=== PATIENT | male | born 1955 | race Caucasian/White ===

== ENCOUNTER 2018-12-04 09:00 | Day surgery (SDC) | payer OTHER ==
[~2018-12-04] VITALS: Ht 167.6 cm; Wt 84.8 kg
[2018-12-04] MEDS ORDERED: NITROGLYCERIN 50MCG/ML 10ML VIAL (CATH LAB) IV ONE (09:41)
[2018-12-04] MEDS ORDERED: NICARDIPINE 100MCG/ML 10ML VIAL (CATH LAB) IV ONE (09:41)
[2018-12-04] MEDS ORDERED: PHENYLEPHRINE 100MCG/ML 10ML VIAL (CATH LAB) IV ONE (09:41)
[2018-12-04] MEDS ORDERED: HEPARIN SODIUM 1,000 UNIT/1ML VIAL IV ONE (09:41)
[2018-12-04] MEDS ORDERED: FENTANYL CITRATE/PF 50MCG/ML 2ML VIAL ONE (10:14)
[2018-12-04] MEDS ORDERED: MIDAZOLAM HCL 2 MG/2 ML VIAL ONE (10:14)
[2018-12-04] MEDS ORDERED: LIDOCAINE HCL 1% 20ML VIAL (Pyxis) INJ ONE (10:15)
[2018-12-04] MEDS ORDERED: IODIXANOL 320MG/ML 100 ML BOTTLE IV ONE (10:15)
[2018-12-04] MEDS ORDERED: OMEP20CA5 MT (10:43)
[2018-12-04] MEDS ORDERED: TAMS-11 MT (10:43)
[2018-12-04] MEDS ORDERED: GABA-290 PO (10:43)
[2018-12-04] MEDS ORDERED: ASPI-1158 MT (10:43)
[2018-12-04] MEDS ORDERED: INSU100V34 SQ (10:43)
[2018-12-04] MEDS ORDERED: ATOR-2 MT (10:43)
[2018-12-04] MEDS ORDERED: METF-416 MT (10:43)
[2018-12-04] MEDS ORDERED: LISI10TA5 MT (10:43)
[2018-12-04] MEDS ORDERED: HYDR25TA MT (10:43)
[2018-12-04] MEDS ORDERED: RAMI5CAP65 MT (10:43)
[2018-12-04] MEDS ORDERED: GLIP10TA10 MT (10:43)
[2018-12-04] MEDS ORDERED: HYDROCODONE/ACETAMINOPHEN 5/325MG TABLET PO NR (15:45)
[2018-12-04 15:47] VITALS: BP 120/80
== END 2018-12-04 16:30 | disposition home or self-care (01) ==
LOC: CCL 09:00
PROVIDERS: ATTEND Specialist
DX: I25.10 Atherosclerotic heart disease of native coronary artery without angina pectoris (principal); I35.0 Nonrheumatic aortic (valve) stenosis; I10 Essential (primary) hypertension; E78.5 Hyperlipidemia, unspecified; E11.9 Type 2 diabetes mellitus without complications; K21.9 Gastro-esophageal reflux disease without esophagitis; N40.0 Benign prostatic hyperplasia without lower urinary tract symptoms; Z79.82 Long term (current) use of aspirin; Z79.899 Other long term (current) drug therapy; Z82.49 Family history of ischemic heart disease and other diseases of the circulatory system; Z83.3 Family history of diabetes mellitus
CPT/HCPCS: 82962; 93005; 93454; 99152; 99153; C1769; C1887; C1893; J1644; J2250; J2370; J3010; J3490; Q9967; G0500